=== PATIENT | male | born 1995 ===

== ENCOUNTER → 2021-01-05 | Outpatient (CLI) | payer BC ==
--- NOTE | 2021-01-05 10:15 | Diagnostic Imaging Report ---
Indication: Positive TB skin test. TIME OF EXAM: 9:26 AM No prior studies are available for comparison. The heart size is normal. Lungs are clear. There are no findings to suggest tuberculosis. No effusion or pneumothorax is identified. The pulmonary vascularity is unremarkable. IMPRESSION: No acute cardiopulmonary process is detected. Report was faxed to [facility] by lulu at 10:14AM. Dictated by: Dictated on workstation # [id number]
== END ==
LOC: RAD 09:08
PROVIDERS: ATTEND Nurse Practitioner Family
DX: R76.11 Nonspecific reaction to tuberculin skin test without active tuberculosis (principal)
CPT/HCPCS: 71045